=== PATIENT | female | born 1985 | race Caucasian/White ===

== ENCOUNTER 2024-12-15 07:14 | Emergency (ER) | payer OTHER, SELFPAY ==
[2024-12-15 07:14] VITALS: BP 158/74; PULSE 136; RESP 22; TEMP 36.6; O2SAT 98; BMI 35.7
[2024-12-15 07:17] VITALS: O2SAT 98
--- NOTE | 2024-12-15 07:19 | EDS_ITS ---
HPI History of Present Illness Chief Complaint: Shortness of Breath Informant: patient Onset/Context/Timing Onset: Yesterday Context: gradual Timing: Continuous Quality: Positive for Wheezing Worsened by: Lying flat Relieved by: Nothing Associated Symptoms fever and chills; Negative for cough, rhinorrhea, ear pain, sore throat, sweats, clear sputum, white sputum, yellow sputum or green sputum Chest Pain: Positive for Stabbing Narrative Narrative: Patient presents with shortness of breath that began yesterday. Patient states it is gradually gotten worse. Patient states she noted herself wheezing yesterday evening. Patient admits to a cough but denies any sputum production. Patient states her breathing is worse when she lays flat. Patient states she had a temperature of 102 at home. Patient also admits to some rhinorrhea. Patient admits to some sharp stabbing chest pain in the substernal area. Patient denies any nausea or vomiting. Patient states she was recently treated for strep throat and was feeling better after completing the antibiotics for that. PE Risk Factors: Positive for Cancer Recent Illness/Hospitalization: Yes (Recently treated for strep throat) [facility] Medical History (Updated 12/15/24 @ 11:[address] Saqib Reid, DO) Thyroid cancer Home Medications ?Medication ?Instructions ?Recorded ?Last Taken ?Type levothyroxine 175 mcg tablet 175 mcg PO DAILY 12/15/24 Unknown History lisinopril 20 mg tablet 20 mg PO 12/15/24 Unknown Hi story Allergy/AdvReac Type Severity Reaction Status Date / Time No Known Allergies Allergy Verified 12/15/24 07:15 Surgical History (Updated 12/15/24 @ 07:[address] Saqib Reid, ) Hx of arthroscopic knee surgery Hx of cholecystectomy Hx of thyroidectomy Social History Smoking Status: Never smoker ROS ROS ED Constitutional Constitutional ED: Reports chills and fever(s) Eyes Eyes: Denies blurry vision or change in vision ENT ENT ED: Reports rhinorrhea; Denies sore throat Cardiovascular Cardiovascular: Reports chest pain; Denies palpitations Respiratory/Chest Respiratory/Chest: Reports cough and dyspnea Gastrointestinal Gastrointestinal: Denies nausea or vomiting Genitourinary Genitourinary ED: Denies dysuria or hematuria Musculoskeletal Musculoskeletal: Denies back pain or neck pain Integumentary Denies abscess or rash Neurologic Neurologic: Reports headache(s); Denies weakness Allergic/Immunologic Allergic/Immunologic ED: Denies mouth swelling or urticaria EXAM Physical Exam Const Vital Signs: 12/15/24 07:14 12/15/24 07:17 12/15/24 09:50 Temperature 98 F Temperature Source Oral Pulse Rate 136 H 126 H Respiratory Rate 22 H 35 H Respiratory Effort Non-Labored Short of Breath Respiratory Depth Normal Respiratory Pattern Normal Blood Pressure 158/74 H 136/78 H Blood Pressure Mean 102 97 Pulse Ox 98 95 Oxygen Delivery Method Room Air Room Air Room Air 12/15/24 09:59 Temperature 100.5 F H Temperature Source Oral Pulse Rate Respiratory Rate Respiratory Effort Respiratory Depth Respiratory Pattern Blood Pressure Blood Pressure Mean Pulse Ox Oxygen Delivery Method Positive well nourished and well developed Constitutional Narrative: BMI of 35.8 General Appearance ED: well developed and NAD HEENT Reports moist mucous membranes Neck supple and no JVD Resp normal respiratory effort Auscultation: wheezes scattered wheezes Cardio regular rhythm Rate: tachycardic GI non-tender and non-distended Auscultation: normoactive bowel sounds Palpation: soft Neuro oriented x3, CN's II-XII intact bilaterally and no sensory deficits noted Gloria Coma Scale: document GCS findings Spontaneous Obeys Commands Oriented 15 Sensorium / Orientation: alert Motor Exam: strength 5/5 throughout Psych mental status grossly normal MDM MDM MDM Narrative Medical decision making narrative: Differential diagnosis includes pneumonia, pulmonary embolism, viral upper respiratory infection, bronchitis, cardiac dysrhythmia, and cardiac ischemia. EKG will be obtained to assess for cardiac dysrhythmia and cardiac ischemia. Chest x-ray will be obtained to assess for pneumonia and pneumothorax. CBC will be obtained to assess for leukocytosis and anemia. Basic metabolic profile will be obtained to assess for electrolyte abnormality and renal function. D-dimer will be obtained to assess for pulmonary embolism. High-sensitivity troponin will be obtained to assess for cardiac ischemia. Lab Data Attestation: I reviewed the patient's lab results. Lab results narrative: CBC was reviewed and was within normal limits. Basic metabolic profile was reviewed and showed a slightly elevated glucose of 141. The remainder is within normal limits. D-dimer was reviewed and was elevated at 1.84. High-sensitivity troponin was reviewed and was normal at 4. COVID-19 PCR was reviewed and was negative. Influenza PCR was reviewed and was positive for influenza A and negative for influenza B. RSV PCR was reviewed and was negative. Labs: Laboratory Results - last 24 hr 12/15/24 07:40 WBC 6.5 RBC 3.98 L Hgb 12.2 Hct 36.0 L MCV 90.5 MCH 30.7 MCHC 33.9 RDW Std Deviation 39.8 RDW Coeff of [place] 12.1 Plt Count 217 MPV 9.5 Immature Gran % (Auto) 1.700 H Neut % (Auto) 87.1 H Lymph % (Auto) 7.0 L Saline % (Auto) 3.8 Eos % (Auto) 0.2 Baso % (Auto) 0.2 Absolute Neuts (auto) 5.7 Absolute Lymphs (auto) 0.46 L Nucleated RBC % 0 D-Dimer Quant (PE/DVT) 1.84 H* Sodium 137 Potassium 3.6 Chloride 105 Carbon Dioxide 22.0 Anion Gap 9 BUN 6 L Creatinine 0.83 Estim Creat Clear Calc 106.71 Est GFR (MDRD) Af Amer 97 Est GFR (MDRD) Non-Af 80 BUN/Creatinine Ratio 7.2 L Glucose 141 H Calcium 9.0 Troponin I High Sens 4 Radiography Chest X-Ray - ED: 2 View, Read by ED Physician, Read by Radiologist and No Acute Disease CTA PE Study: No Evidence of PE and No Evidence of Dissection Diagnostic Testing: Clinical Impression(s) from Imaging Studies Chest X-Ray 12/15/24 07:58 IMPRESSION: No acute cardiopulmonary process. Reading Location: [facility] Chest CTA 12/15/24 09:28 IMPRESSION: 1. No pulmonary embolism is identified. Some of the distal pulmonary arteries cannot be evaluated due to suboptimal opacification. 2. Small esophageal hiatal hernia. Reading Location: [facility] PA and lateral chest x-ray was obtained. There are 2 views. On my independent interpretation, lung mcdaniel are clear. There is normal cardiac silhouette. Bony thorax is normal. There is no acute process noted. Radiologist also interpreted the x-ray and agrees. Because of the elevated D-dimer, CT of the chest was obtained. There is no evidence for pulmonary embolism. There is a small hiatal hernia noted. This was interpreted by the radiologist was also independently reviewed by myself. EKG Initial EKG: Attestation: I personally reviewed and interpreted this EKG as follows: Interpretation: Sinus Tachycardia (125) and Non-Specific ST Changes Comments: EKG was obtained. On my independent interpretation, it showed a sinus tachycardia with a rate of 125. MD interval, QRS interval, and QTc intervals were all normal. [place] was normal. There are nonspecific ST-T wave changes. Prior EKG tracings: not available for review Treatment and Re-Evaluation :: Patient was given Tylenol. Patient was advised of her findings. Patient was instructed to continue Tylenol and ibuprofen as needed for any fevers. Patient was instructed to drink plenty of fluids. Patient was instructed to follow-up with her primary care physician in 5 to 7 days. Patient understood and was agreeable with the plan. All questions were answered. Discharge Plan Triage Chief Complaint: Shortness of Breath ED Provider: Saqib Reid Dx/Rx/DC Orders Clinical Impression: Influenza A, Tachycardia Instructions: ED Influenza (Adult) Prescriptions: No Action levothyroxine 175 mcg tablet 175 mcg PO DAILY lisinopril 20 mg tablet 20 mg PO Primary Care Provider: Juan C Arguello Referrals: Juan C Arguello MD [Primary Care Provider] - 5-7 Days Print Language: Mohawk Disposition Disposition: Home, Self Care
--- NOTE | 2024-12-15 07:33 | EKG12_ITS ---
Test Reason : Blood Pressure : */* mmHG Vent. Rate : 125 BPM Atrial Rate : 125 BPM P-R Int : 174 ms QRS Dur : 82 ms QT Int : 290 ms P-R-T Axes : 73 -2 101 degrees QTcB Int : 418 ms Sinus tachycardia Abnormal QRS-T angle, consider primary T wave abnormality Abnormal ECG Confirmed by JAMIE KRUGER, ARIA ([id number]), pictures editor ADRIANA CARBONE ([id number]) on 12/18/2024 7:24:47 AM Referred By: Confirmed By: ARIA AYALA MD
[2024-12-15 07:56] LABS: Absolute Lymphocyte Count 0.46 X10^3/uL (0.83-4.51); Absolute Neutrophil Count 5.7 X10^3/uL (2.0-7.7); Basophil# 0.01 X10^3/uL; Basophil% 0.2 % (0-1); Eosinophil# 0.01 X10^3/uL; Eosinophils% 0.2 % (0-5); Hemoglobin 12.2 g/dL (12.0-15.0); Lymphocyte # 0.46 X10^3/ul (0.83-4.51); Mean Corp Hgb Conc 33.9 g/dL (32-36); Mean Corpuscular Hgb 30.7 pg (27.0-32.0); Mean Corpuscular Volume 90.5 fL (81-99); Mean Platelet Vol. 9.5 fl (6.2-12.0); Monocyte# 0.25 X10^3/uL; Monocyte% 3.8 % (0-10); NRBC Flagged by Analyzer 0 % (0-5); Neutrophil % 87.1 % (47-70); POSITIVE DIFFERENTIAL YES; Platelet Count 217 K/mm3 (150-450); RBC Distribution Width CV 12.1 % (11.6-14.6); RBC Distribution Width SD 39.8 fl (35.1-43.9); Red Blood Count 3.98 M/mm3 (4.2-5.4); White Blood Count 6.5 K/mm3 (4.4-11.0)
--- NOTE | 2024-12-15 07:58 | RAD_ITS ---
EXAM: XR Chest, 2 Views CLINICAL INDICATION: TECHNIQUE: Frontal and lateral views of the chest. COMPARISON: No relevant prior studies available. FINDINGS: LUNGS AND PLEURAL SPACES: Unremarkable. No consolidation. No pneumothorax. HEART: Unremarkable. No cardiomegaly. MEDIASTINUM: Unremarkable. Normal mediastinal contour. BONES/JOINTS: Unremarkable. No acute fracture. RAD/Chest PA and Lateral IMPRESSION: No acute cardiopulmonary process. Reading [facility]
[2024-12-15 08:17] LABS: Anion Gap 9 (5-15); BUN 6 mg/dL (7-18); BUN/Creat Ratio 7.2 RATIO (10-20); Chloride 105 mmol/L (98-107); Creatinine, Serum 0.83 mg/dL (0.55-1.02); EST Glomerular Filtration Rate 80 mL/min (>60); Est Glom Filt Rate - Afr Amer 97 mL/min (>60); Estimated Creatinine Clearance 106.71 ml/min; Glucose 141 mg/dL (74-106); Potassium 3.6 mmol/L (3.5-5.1); Sodium Level 137 mmol/L (136-145); Troponin-I HS 4 pg/mL (3.0-54.0)
[2024-12-15 09:19] LABS: D-Dimer Quantitative (DVT/PE) 1.84 FEU/ug/m (0.27-0.49)
--- NOTE | 2024-12-15 09:28 | CT_ITS ---
EXAM: CT Angiography Chest Without and With Intravenous Contrast CLINICAL INDICATION: TECHNIQUE: Axial computed tomographic angiography images of the chest without and with intravenous contrast. This CT exam was performed using one or more of the following dose reduction techniques: automated exposure control, adjustment of the mA and/or kV according to patient size, and/or use of iterative reconstruction technique. MIP reconstructed images were created and reviewed. COMPARISON: No relevant prior studies available. FINDINGS: LIMITATIONS: Suboptimal opacification of the pulmonary arteries. PULMONARY ARTERIES: No pulmonary embolism is identified. Some of the distal pulmonary arteries cannot be evaluated due to suboptimal opacification. AORTA: No acute findings. No thoracic aortic aneurysm. LUNGS AND PLEURAL SPACES: Lung emphysema. Dependent atelectasis. No mass. No significant effusion. No pneumothorax. HEART: Unremarkable. No cardiomegaly. No significant pericardial effusion. No evidence of RV dysfunction. MEDIASTINUM: Small esophageal hiatal hernia. BONES/JOINTS: No acute fracture. No dislocation. SOFT TISSUES: Unremarkable. LYMPH NODES: Unremarkable. No enlarged lymph nodes. CT/CTA Chest W/WO Contrast IMPRESSION: 1. No pulmonary embolism is identified. Some of the distal pulmonary arteries cannot be evaluated due to suboptimal opacification. 2. Small esophageal hiatal hernia. Reading Location: [facility]
[2024-12-15 09:50] VITALS: BP 136/78; PULSE 126; RESP 35; O2SAT 95
[2024-12-15 09:59] VITALS: TEMP 38.1
[2024-12-15] MEDS: Acetaminophen 500 MG Tablet 1000 MG PO (11:07)
[2024-12-15 11:52] VITALS: BP 132/98; PULSE 122; RESP 18; TEMP 38.3; O2SAT 95
== END 2024-12-15 11:56 | disposition home or self-care (01) ==
PROVIDERS: Emergency Provider Emergency Medicine; PCP Family Medicine; Visit Provider Emergency Medicine
DX: J10.1 Influenza due to other identified influenza virus with other respiratory manifestations (principal); R00.0 Tachycardia, unspecified
CPT/HCPCS: 71046; 71275; 80048; 84484; 85025; 85379; 87631; 93005; 99285; Q9967; A4216